=== PATIENT | male | born 1955 | race Caucasian/White ===

== ENCOUNTER 2017-02-03 14:20 | Emergency (ER) | payer BC ==
--- NOTE | 2017-02-03 15:08 | ER Document Report ---
ED Medical Screen (RME) - General Chief Complaint: Dizziness Stated Complaint: BLOOD PRESSURE PROBLEM Time Seen by Provider: 02/03/17 15:00 Notes: Patient is a 61-year-old male who presents with 2 days of feeling off balance and lightheadedness. He is also having nausea and vomited once. Pt seen at Urgent Care and sent to ER because the blood pressure was 179/92 and there is no history of hypertension. Denies focal weakness, numbness, abdominal pain or chest pain. PE: +Romberg's, 5/5 strength in all 4 extremities, sensation intact I have greeted and performed a rapid initial assessment of this patient. A comprehensive ED assessment and evaluation of the patient, analysis of test results and completion of the medical decision making process will be conducted by additional ED providers. TRAVEL OUTSIDE OF THE [place] IN LAST 30 DAYS: No - Related Data Allergies/Adverse Reactions: No Known Allergies Allergy (Verified 02/03/17 14:23) Past Medical History Renal/ Medical History: Denies: Hx Peritoneal Dialysis Physical Exam - Vital signs Vitals: Temp Pulse Resp BP Pulse Ox 97.9 F 82 20 166/93 H 95 02/03/17 14:23 02/03/17 14:23 02/03/17 14:23 02/03/17 14:23 02/03/17 14:23 Course - Vital Signs Vital signs: Temp Pulse Resp BP Pulse Ox 97.9 F 82 20 166/93 H 95 02/03/17 14:23 02/03/17 14:23 02/03/17 14:23 02/03/17 14:23 02/03/17 14:23
[2017-02-03] MEDS ORDERED: NORMAL SALINE 1000 ML 1,000 ML IV ONE (15:09)
[2017-02-03 15:47] LABS: ABSOLUTE BASOPHILS # (AUTO) 0.1 10^3/uL (0.0-0.2); ABSOLUTE EOSINOPHILS # (AUTO) 0.2 10^3/uL (0.0-0.6); ABSOLUTE LYMPHOCYTES (AUTO) 2.9 10^3/uL (0.5-4.7); ABSOLUTE MONOCYTES (AUTO) 0.5 10^3/uL (0.1-1.4); ABSOLUTE NEUT (AUTO) 5.7 10^3/uL (1.7-8.2); BASOPHILS % (AUTO) 1.1 % (0-2); EOSINOPHILS % (AUTO) 2.6 % (0-6); HEMATOCRIT 47.8 % (37.9-51.0); HEMOGLOBIN 15.9 g/dL (13.5-17.0); HGB HCT DIFFERENCE -0.1; LYMPHOCYTES % (AUTO) 30.8 % (13-45); MEAN CORPUSCULAR HEMOGLOBIN 27.3 pg (27.0-33.4); MEAN CORPUSCULAR HGB CONC 33.1 g/dL (32.0-36.0); MEAN CORPUSCULAR VOLUME 82 fl (80-97); MONOCYTES % (AUTO) 5.6 % (3-13); RED CELL DISTRIBUTION WIDTH 15.8 % (11.5-14.0); SEGMENTED NEUTROPHILS % (AUTO) 59.9 % (42-78); WHITE BLOOD COUNT 9.5 10^3/uL (4.0-10.5)
[2017-02-03 15:53] LABS: APPEARANCE,URINE CLEAR; BILIRUBIN,URINE NEGATIVE (NEGATIVE); GLUCOSE, URINE NEGATIVE (NEGATIVE); KETONES,URINE NEGATIVE (NEGATIVE); LEUKOCYTE ESTERASE,URINE NEGATIVE (NEGATIVE); NITRITE,URINE NEGATIVE (NEGATIVE); PROTEIN,URINE NEGATIVE (NEGATIVE); URINE SPECIFIC GRAVITY 1.005; UROBILINOGEN,URINE NEGATIVE mg/dL (<2.0)
--- NOTE | 2017-02-03 15:53 | RADIOLOGY REPORT (SQ) ---
EXAM DESCRIPTION: CHEST SINGLE VIEW COMPLETED DATE/TIME: 02/03/2017 3:39 pm REASON FOR STUDY: SOB COMPARISON: None. EXAM PARAMETERS: NUMBER OF VIEWS: One view. TECHNIQUE: Single frontal radiographic view of the chest acquired. RADIATION DOSE: NA LIMITATIONS: None. FINDINGS: LUNGS AND PLEURA: Minimal linear opacities left lung base. Otherwise clear. MEDIASTINUM AND HILAR STRUCTURES: No masses. Contour normal. HEART AND VASCULAR STRUCTURES: Heart normal in size. Normal vasculature. BONES: No acute findings. HARDWARE: None in the chest. OTHER: No other significant finding. IMPRESSION: MINIMAL AIRSPACE OPACITIES LEFT LUNG BASE MAY REPRESENT SUBSEGMENTAL ATELECTASIS, ASPIRA TION, OR DEVELOPING PNEUMONIA. TECHNICAL DOCUMENTATION: JOB ID: [id number]
[2017-02-03 16:18] LABS: ALANINE AMINOTRANSFERASE 26 U/L (21-72); ALBUMIN 3.9 g/dL (3.5-5.0); ALKALINE PHOSPHATASE 115 U/L (38-126); ANION GAP 10 (5-19); ASPARTATE AMINO TRANSFERASE 18 U/L (17-59); BILIRUBIN,DIRECT 0.5 mg/dL (0.0-0.4); BILIRUBIN,TOTAL 0.7 mg/dL (0.2-1.3); BLOOD UREA NITROGEN 12 mg/dL (7-20); CALCIUM 9.9 mg/dL (8.4-10.2); CARBON DIOXIDE 31 mmol/L (22-30); CHLORIDE 103 mmol/L (98-107); CREATINE KINASE 51 U/L (55-170); CREATININE RESULT 0.97 mg/dL (0.52-1.25); GLUCOSE 104 mg/dL (75-110); LIPASE 58.7 U/L (23-300); POTASSIUM 3.8 mmol/L (3.6-5.0)
[2017-02-03] MEDS ORDERED: MECLIZINE HCL 25 MG TABLET PO ONE ×2 (16:41→18:38)
--- NOTE | 2017-02-03 17:25 | ER Document Report ---
ED General - General Chief Complaint: Dizziness Stated Complaint: BLOOD PRESSURE PROBLEM Time Seen by Provider: 02/03/17 15:00 Mode of Arrival: Ambulatory Information source: Patient, Relative Notes: 61 yr old male presents with family with concerns that he was pale intermittently since yesterday with dizziness and his gait being off. Patient denies any chest pain shortness of breath headache TRAVEL OUTSIDE OF THE [place] IN LAST 30 DAYS: No - HPI Onset: Yesterday Onset/Duration: Sudden Quality of pain: No pain Severity: Mild Pain Level: Denies Associated symptoms: Weakness Exacerbated by: Denies Relieved by: Denies Similar symptoms previously: No Recently seen / treated by doctor: No - Related Data Allergies/Adverse Reactions: No Known Allergies Allergy (Verified 02/03/17 14:23) Past Medical History - Social History Smoking Status: Current Every Day Smoker Cigarette use (# per day): Yes Chew tobacco use (# tins/day): No Smoking Education Provided: No Frequency of alcohol use: None Drug Abuse: None Family History: Reviewed & Not Pertinent Renal/ Medical History: Denies: Hx Peritoneal Dialysis Review of Systems - Review of Systems Notes: REVIEW OF SYSTEMS: CONSTITUTIONAL : Denies fever, chills, or sweats. Denies recent illness. EENT: Denies eye, ear, throat, or mouth pain or symptoms. Denies nasal or sinus congestion or discharge. Denies throat, tongue, or mouth swelling or difficulty swallowing. CARDIOVASCULAR: Denies chest pain. Denies palpitations or racing or irregular heart beat. Denies ankle edema. RESPIRATORY: Denies cough, cold, or chest congestion. Denies shortness of breath, difficulty breathing, or wheezing. GASTROINTESTINAL: Denies abdominal pain or distention. Denies nausea, vomiting , or diarrhea. Denies blood in vomitus, stools, or per rectum. Denies black, tarry stools. Denies constipation. GENITOURINARY: Denies difficulty urinating, painful urination, burning, frequency, blood in urine, or discharge. MUSCULOSKELETAL: Denies back or neck pain or stiffness. Denies joint pain or swelling. SKIN: Denies rash, lesions or sores. HEMATOLOGIC : Denies easy bruising or bleeding. LYMPHATIC: Denies swollen, enlarged glands. NEUROLOGICAL: Admits to difficulty with gait PSYCHIATRIC: Denies anxiety or stress. Denies depression, suicidal ideation, or homicidal ideation. ALL OTHER SYSTEMS REVIEWED AND NEGATIVE. Dictation was performed using [employer] voice recognition software PHYSICAL EXAMINATION: GENERAL: Well-appearing, well-nourished and in no acute distress. HEAD: Atraumatic, normocephalic. EYES: Pupils equal round and reactive to light, extraocular movements intact, sclera anicteric, conjunctiva are normal. ENT: Nares patent, oropharynx clear without exudates. Moist mucous membranes. NECK: Normal range of motion, supple without lymphadenopathy LUNGS: Breath sounds clear to auscultation bilaterally and equal. No wheezes rales or rhonchi. HEART: Regular rate and rhythm without murmurs ABDOMEN: Soft, nontender, nondistended abdomen. No guarding, no rebound. No masses appreciated. Musculoskeletal: Normal range of motion, no pitting or edema. No cyanosis. NEUROLOGICAL: Cranial nerves grossly intact. Normal speech, normal gait. Normal sensory, motor exams PSYCH: Normal mood, normal affect. SKIN: Warm, Dry, normal turgor, no rashes or lesions noted. Physical Exam - Vital signs Vitals: Temp Pulse Resp BP Pulse Ox 97.9 F 82 20 166/93 H 95 02/03/17 14:23 02/03/17 14:23 02/03/17 14:23 02/03/17 14:23 02/03/17 14:23 Course - Re-evaluation Re-evalutation: 02/03/17 17:57 Patient denies any concerns states he feels perfectly fine family members are more concerned and he is, he states overall he has no other issues, lab work noted no significant abnormality CT head nose negative for any acute bleed had the patient ambulates in the ambulated with no difficulty given family's concerns I did have the patient to see here further see if symptoms return, but both he and family state that he looks much better now and is asymptomatic 02/04/17 18:46 Patient was watched further had absolutely no symptoms and will be discharged at this time I explained to him in a very strict return precautions and they understand and will return if there are any other concerns After performing a Medical Screening Examination, I estimate there is LOW risk for INTRACRANIAL HEMORRHAGE, ISCHEMIC CVA, MALIGNANT DYSRHYTHMIA, ACUTE CORONARY SYNDROME, MENINGITIS, PULMONARY EMBOLISM, or SEPSIS thus I consider the discharge disposition reasonable. I have reevaluated this patient multiple times and no significant life threatening changes are noted. The patient and I have discussed the diagnosis and risks, and we agree with discharging home with close follow-up with the understanding that symptoms and presentations can change. We also discussed returning to the Emergency Department immediately if new or worsening symptoms occur. We have discussed the symptoms which are most concerning (e.g., changing or worsening pain, weakness, vomiting, fever) that necessitate immediate return. - Vital Signs Vital signs: Temp Pulse Resp BP Pulse Ox 97.9 F 82 31 H 164/85 H 97 02/03/17 14:23 02/03/17 14:23 02/03/17 17:09 02/03/17 17:08 02/03/17 17:09 - Laboratory Result Diagrams: 02/03/17 15:25 02/03/17 15:25 Laboratory results interpreted by me: 02/03/17 02/03/17 15:25 15:25 RBC 5.80 H RDW 15.8 H Carbon Dioxide 31 H Direct Bilirubin 0.5 H Creatine Kinase 51 L - Diagnostic Test Radiology reviewed: Image reviewed, Reports reviewed - EKG Interpretation by Me EKG shows normal: Sinus rhythm, Sabin, Intervals, QRS Complexes Discharge - Discharge Clinical Impression: Vertigo, Dizziness Condition: Stable Disposition: HOME, SELF-CARE Instructions: Dizziness ([facility]), Vertigo ([facility]) Prescriptions: Meclizine HCl [Antivert 25 mg Tablet] 25 mg PO TID PRN #21 tablet PRN Reason: Referrals: CURRY WELLER MD [Primary Care Provider] - Follow up as needed BASIL OH MD [ACTIVE STAFF] - Follow up tomorrow
--- NOTE | 2017-02-03 17:25 | RADIOLOGY REPORT (SQ) ---
EXAM DESCRIPTION: CT HEAD WITHOUT COMPLETED DATE/TIME: 02/03/2017 5:02 pm REASON FOR STUDY: dizzy COMPARISON: None. TECHNIQUE: Axial images acquired through the brain without intravenous contrast. Images reviewed wi th bone, brain and subdural windows. Images stored on PACS. All CT scanners at this facility use dose modulation, iterative reconstruction, and/or weight based d osing when appropriate to reduce radiation dose to as low as reasonably achievable (ALARA). [facility]: Dose Right [facility]: CareDose [facility]: Dose Right [facility]: Teradose 4D [facility]: [employer] RADIATION DOSE: Up-to-date CT equipment and radiation dose reduction techniques were employed. CTDIv ol: 64.6 mGy. DLP: 1163 mGy-cm. mGy. LIMITATIONS: None. FINDINGS: VENTRICLES: Normal size and contour. CEREBRUM: No masses. No hemorrhage. No midline shift. No evidence for acute infarction. Normal gra y/white matter differentiation. No areas of low density in the white matter. CEREBELLUM: No masses. No hemorrhage. No alteration of density. No evidence for acute infarction. EXTRAAXIAL SPACES: No fluid collections. No masses. ORBITS AND GLOBE: No intra- or extraconal masses. Normal contour of globe without masses. CALVARIUM: No fracture. PARANASAL SINUSES: No fluid or mucosal thickening. SOFT TISSUES: No mass or hematoma. OTHER: No other significant finding. IMPRESSION: No acute intracranial findings. COMMENT: Quality ID # [id number]: Final reports with documentation of one or more dose reduction techniques (e.g., Automated exposure control, adjustment of the mA and/or kV according to patient size, use of iterative reconstruction technique) TECHNICAL DOCUMENTATION: JOB ID: [id number]- All Rights Reserved
[2017-02-03 18:22] VITALS: BP 164/85
--- NOTE | 2017-02-03 18:23 | EKG REPORT ---
SEVERITY:- NORMAL ECG - SINUS RHYTHM : Confirmed by: Santiago Avitia MD 03-Feb-2017 18:23:05
== END 2017-02-03 18:49 | disposition home or self-care (01) ==
LOC: ER 14:20
DX: R42 Dizziness and giddiness (principal); R53.1 Weakness; F17.210 Nicotine dependence, cigarettes, uncomplicated
CPT/HCPCS: 93005; 99284; 96360; 36415; 82550; 83690; 85025; 80053; 81001; 84484; 71010; 70450; 93010; L1830; J7030

== ENCOUNTER 2017-04-19 09:17 | Inpatient (IN) | payer BC ==
[2017-04-19 09:44] LABS: ABSOLUTE BASOPHILS # (AUTO) 0.1 10^3/uL (0.0-0.2); ABSOLUTE EOSINOPHILS # (AUTO) 0.2 10^3/uL (0.0-0.6); ABSOLUTE LYMPHOCYTES (AUTO) 2.7 10^3/uL (0.5-4.7); ABSOLUTE MONOCYTES (AUTO) 0.6 10^3/uL (0.1-1.4); ABSOLUTE NEUT (AUTO) 7.9 10^3/uL (1.7-8.2); BASOPHILS % (AUTO) 0.5 % (0-2); EOSINOPHILS % (AUTO) 1.8 % (0-6); HEMATOCRIT 52.3 % (37.9-51.0); HEMOGLOBIN 17.4 g/dL (13.5-17.0); HGB HCT DIFFERENCE -0.1; LYMPHOCYTES % (AUTO) 23.9 % (13-45); MEAN CORPUSCULAR HEMOGLOBIN 27.3 pg (27.0-33.4); MEAN CORPUSCULAR HGB CONC 33.2 g/dL (32.0-36.0); MEAN CORPUSCULAR VOLUME 82 fl (80-97); MONOCYTES % (AUTO) 5.4 % (3-13); RED BLOOD COUNT 6.35 10^6/uL (4.35-5.55); RED CELL DISTRIBUTION WIDTH 15.3 % (11.5-14.0); SEGMENTED NEUTROPHILS % (AUTO) 68.4 % (42-78); WHITE BLOOD COUNT 11.5 10^3/uL (4.0-10.5)
--- NOTE | 2017-04-19 09:51 | RADIOLOGY REPORT (SQ) ---
EXAM DESCRIPTION: CT HEAD WITHOUT COMPLETED DATE/TIME: 04/19/2017 9:36 am REASON FOR STUDY: FACILA DROOP COMPARISON: January 2017 TECHNIQUE: Axial images acquired through the brain without intravenous contrast. Images reviewed wi th bone, brain and subdural windows. Images stored on PACS. All CT scanners at this facility use dose modulation, iterative reconstruction, and/or weight based d osing when appropriate to reduce radiation dose to as low as reasonably achievable (ALARA). [facility]: Dose Right [facility]: CareDose [facility]: Dose Right [facility]: Teradose 4D [facility]: [employer] RADIATION DOSE: Up-to-date CT equipment and radiation dose reduction techniques were employed. CTDIv ol: 64.6 mGy. DLP: 1163 mGy-cm. mGy. LIMITATIONS: None. FINDINGS: VENTRICLES: Normal size and contour. CEREBRUM: No masses. No hemorrhage. No midline shift. No evidence for acute infarction. Normal gra y/white matter differentiation. No areas of low density in the white matter. CEREBELLUM: No masses. No hemorrhage. No alteration of density. No evidence for acute infarction. EXTRAAXIAL SPACES: No fluid collections. No masses. ORBITS AND GLOBE: No intra- or extraconal masses. Normal contour of globe without masses. CALVARIUM: No fracture. PARANASAL SINUSES: No fluid or mucosal thickening. SOFT TISSUES: No mass or hematoma. OTHER: No other significant finding. IMPRESSION: No significant intracranial abnormalities were identified. Findings as noted above EVIDENCE OF ACUTE STROKE: NO. COMMENT: Quality ID # [id number]: Final reports with documentation of one or more dose reduction techniques (e.g., Automated exposure control, adjustment of the mA and/or kV according to patient size, use of iterative reconstruction technique) TECHNICAL DOCUMENTATION: JOB ID: [id number] [employer]- All Rights Reserved
[2017-04-19 09:54] LABS: PARTIAL THROMBOPLASTIN TIME 28.7 SEC (23.5-35.8)
[2017-04-19] MEDS ORDERED: NORMAL SALINE 1000 ML 1,000 ML IV ONE (10:03)
[2017-04-19 10:04] LABS: ALANINE AMINOTRANSFERASE 36 U/L (21-72); ALBUMIN 4.3 g/dL (3.5-5.0); ALKALINE PHOSPHATASE 140 U/L (38-126); ANION GAP 13 (5-19); ASPARTATE AMINO TRANSFERASE 25 U/L (17-59); BILIRUBIN,DIRECT 0.4 mg/dL (0.0-0.4); BILIRUBIN,TOTAL 0.8 mg/dL (0.2-1.3); BLOOD UREA NITROGEN 9 mg/dL (7-20); CARBON DIOXIDE 30 mmol/L (22-30); CHLORIDE 104 mmol/L (98-107); CREATINE KINASE 66 U/L (55-170); CREATININE RESULT 0.96 mg/dL (0.52-1.25); GLUCOSE 101 mg/dL (75-110); POTASSIUM 3.9 mmol/L (3.6-5.0); SODIUM 146.7 mmol/L (137-145); TOTAL PROTEIN 7.7 g/dL (6.3-8.2)
--- NOTE | 2017-04-19 10:04 | RADIOLOGY REPORT (SQ) ---
EXAM DESCRIPTION: CHEST SINGLE VIEW COMPLETED DATE/TIME: 04/19/2017 9:41 am REASON FOR STUDY: FACILA DROOP COMPARISON: January 2017 EXAM PARAMETERS: NUMBER OF VIEWS: One view. TECHNIQUE: Single frontal radiographic view of the chest acquired. RADIATION DOSE: NA LIMITATIONS: None. FINDINGS: LUNGS AND PLEURA: No opacities, masses or pneumothorax. No pleural effusion. I cannot exc lude a component of obstructive lung disease. MEDIASTINUM AND HILAR STRUCTURES: No masses. Contour normal. HEART AND VASCULAR STRUCTURES: Heart normal in size. Normal vasculature. BONES: No acute findings. HARDWARE: None in the chest. OTHER: No other significant finding. IMPRESSION: NO ACUTE RADIOGRAPHIC FINDING IN THE CHEST. TECHNICAL DOCUMENTATION: JOB ID: [id number] [employer]- All Rights Reserved
--- NOTE | 2017-04-19 10:06 | ER Document Report ---
ED General - General Chief Complaint: S/S of Possible Stroke Stated Complaint: STROKE LIKE SYMPTOMS Time Seen by Provider: 04/19/17 09:27 TRAVEL OUTSIDE OF THE [place] IN LAST 30 DAYS: No - HPI Patient complains to provider of: Left-sided weakness facial drooping Notes: Patient coming in for left upper extremity left lower extremity weakness with new onset of left facial drooping. According to the patient had weakness and numbness of the left upper and lower extremity yesterday patient states he went to a workup this morning with improvement weakness in left leg however left arm continued states it felt like he was having trouble controlling it. According to the family patient at 850 started having left facial drooping. Patient denies any history trauma denies any recent surgery patient states he has a history of hyperlipidemia blood pressure issues. Patient states compliant with this medication regimen. Patient states he does smoke approximately pack to half pack a day. Patient is no obvious distress alert and oriented upon my evaluation. - Related Data Allergies/Adverse Reactions: No Known Allergies Allergy (Verified 02/03/17 14:23) Home Medications: Current Home Medications Albuterol Sulfate [Ventolin Hfa] 2 puff IN Q6HP PRN 04/19/17 [History] Aspirin [Adult Low Dose Aspirin EC] 81 mg PO DAILYP PRN 04/19/17 [History] Febuxostat [Uloric 40 mg Tablet] 40 mg PO DAILYP PRN 04/19/17 [History] Losartan Potassium [Cozaar 50 mg Tablet] 50 mg PO DAILY 04/19/17 [History] Meclizine HCl [Antivert 25 mg Tablet] 25 mg PO Q8HP PRN 04/19/17 [History] Omeprazole 40 mg PO DAILY 04/19/17 [History] Simvastatin [Zocor 40 mg Tablet] 40 mg PO DAILY 04/19/17 [History] Umeclidinium Brm/Vilanterol Tr [Anoro Ellipta 62.5-25 Mcg INH] 1 puff IN DAILYP PRN 04/19/17 [History] Past Medical History - Social History Smoking Status: Unknown if Ever Smoked Family History: Reviewed & Not Pertinent Renal/ Medical History: Denies: Hx Peritoneal Dialysis Review of Systems - Review of Systems Constitutional: No symptoms reported EENT: No symptoms reported Cardiovascular: No symptoms reported Respiratory: No symptoms reported Gastrointestinal: No symptoms reported Genitourinary: No symptoms reported Male Genitourinary: No symptoms reported Musculoskeletal: Other - Left-sided weakness Skin: No symptoms reported Hematologic/Lymphatic: No symptoms reported Neurological/Psychological: No symptoms reported Physical Exam - Vital signs Vitals: Resp 20 04/19/17 09:24 Interpretation: Normal - General General appearance: Appears well, Alert - HEENT Head: Normocephalic, Atraumatic Eyes: Normal Pupils: PERRL - Respiratory Respiratory status: No respiratory distress Chest status: Nontender Breath sounds: Normal Chest palpation: Normal - Cardiovascular Rhythm: Regular Heart sounds: Normal auscultation Murmur: No - Abdominal Inspection: Normal Distension: No distension Bowel sounds: Normal Tenderness: Nontender Organomegaly: No organomegaly - Back Back: Normal, Nontender - Extremities General upper extremity: Normal inspection, Nontender, Normal color, Normal ROM , Normal temperature General lower extremity: Normal inspection, Nontender, Normal color, Normal ROM , Normal temperature, Normal weight bearing. No: Cielo's sign - Neurological Neuro grossly intact: Yes Cognition: Normal Orientation: AAOx4 [place] Coma Scale Eye Opening: Spontaneous [place] Coma Scale Verbal: Oriented [place] Coma Scale Motor: Obeys Commands [place] Coma Scale Total: 15 Sensory: Normal Notes: Refer to NIH scale - Psychological Associated symptoms: Normal affect, Normal mood - Skin Skin Temperature: Warm Skin Moisture: Dry Skin Color: Normal Course - Re-evaluation Re-evalutation: 04/19/17 10:04 Patient presents with left arm weakness left leg weakness ongoing since yesterday with new onset of left facial drooping starting at 850 according to the family members. states patient woke up and was otherwise normal noticed at 8 50 the patient's face was drooping. NIH scale of the patient shows a score of 4. Head CT is otherwise negative. Patient's blood pressure is significantly elevated at this time. Discussed with family members and patient at bedside risk and benefits of receiving TPA benefit being symptoms resolve risk being bleeding in the head possible mortality. Patient states that this time he does not think he would like to have any thrombolytic medication due to the risk factors. Patient states he understands that his symptoms can continue and may not resolve on their own however these are deficits that he would be willing to live with. I am going to consult with [facility] neurology to make sure there is no other therapy that can be provided for the patient. Otherwise we will continue on with basic lab work at this time. Will repeat patient's blood pressure 04/19/17 10:07 04/19/17 10:25 Discussed with neurology at [facility] Dr Kelley. States patient is not a candidate for thrombolytic or interventional therapy. Patient is ruled out due to having symptoms yesterday with continued symptoms at this time even the patient is now having new symptoms at 850. Again discussed this with the patient patient agrees that he would not like or consent to thrombolytic therapy. - Vital Signs Vital signs: Temp Pulse Resp BP Pulse Ox 98.0 F 64 20 175/93 H 98 04/19/17 13:24 04/19/17 13:24 04/19/17 13:24 04/19/17 13:24 04/19/17 13:24 - Laboratory Result Diagrams: 04/19/17 09:29 04/19/17 09:29 Laboratory results interpreted by me: 04/19/17 04/19/17 09:29 09:29 WBC 11.5 H RBC 6.35 H Hgb 17.4 H Hct 52.3 H RDW 15.3 H Sodium 146.7 H Alkaline Phosphatase 140 H Critical Care Note - Critical Care Note Total time excluding time spent on procedures (mins): 40 Comments: Multiple evaluations for patient with underlying stroke. Discharge - Discharge Clinical Impression: Left-sided weakness, Facial droop CVA (cerebral vascular accident) Qualifiers: CVA mechanism: unspecified Qualified Code(s): I63.9 - Cerebral infarction, unspecified Condition: Good Disposition: ADMITTED INPATIENT Admitting Provider: Hospitalist - [facility] Unit Admitted: Telemetry ED NIH Stroke Scale - NIH Stroke Scale *: 1. NIH scale should be completed with appropriate accompanying assessment tools. *: 2. The NIH should reflect what the patient is capable of doing and should not be coached by the clinician. 1a. Level of Consciousness: 0=Alert;keenly responsive -: 1=Drowsy -: 2=Obtunded -: 3=Coma/unresponsive or reflex to noxious stimuli. 1a. Responses: 0 1b. Orientation Questions: a. What month is it? -: b. How old are you? -: 0=Answers both questions correctly. -: 1=Answers one question correctly or patient is intubated or has orotracheal trauma. -: 2=Answers neither question correctly. 1b. Responses: 0 1c. Response to commands: a. Open and close eyes? -: b. Cardiovascular Radiologic Technologist and release hand? -: Credit is given despite weakness. Demonstration of task is permitted. Substitute command if hands cannot be used. -: 0=Performs both tasks correctly -: 1=Performs one task correctly -: 2=Performs neither task correctly 1c. Responses: 0 2. Gaze: Establish eye contact and instruct patient to "Follow my finger" -: 0=Normal -: 1=Partial gaze palsy. Gaze is abnormal in one or both eyes, but where forced deviation or total gaze paresis is not present. -: 2=Forced deviation or total gaze paresis. 2. Responses: 0 3. Visual Parra: Sees fingers in all four quadrants. -: 0=No visual loss. -: 1=Partial hemianopsia. -: 2=Complete hemianopsia. -: 3=Bilateral hemianopsia (including Cortical blindness) 3. Responses: 0 4. Facial Movement: Instruct patient to: -: a. Show me your teeth -: b. Raise your eyebrows -: c. Close your eyes -: d. Smile -: 0=Normal symmetrical movement -: 1=Minor paralysis (flattened nasolabial fold, asymmetry on smiling). -: 2=Partial paralysis (total or near total paralysis of lower face). -: 3=Complete paralysis of upper and lower face 4. Responses: 2 5. Motor functions (left arm): Alternate sides and extend each arm with palms down (90 degrees if sitting or 45 degrees for supine). -: 0=No drift;limb holds for full 10 seconds. -: 1=Drift; limb holds but drifts down before full 10 seconds, but does not hit bed. -: 2=Some effort against gravity; limb cannot get to or maintain position. -: 3=No effort against gravity; limb falls. -: 4=No movement. -: UN=Amputation, joint fusion, explain in comments. 5. Responses (left arm): 1 5. Motor Functions (right arm): Alternate sides and extend each arm with palms down (90 degrees if sitting or 45 degrees for supine). -: 0=No drift;limb holds for full 10 seconds. -: 1=Drift; limb holds but drifts down before full 10 seconds, but does not hit bed. -: 2=Some effort against gravity; limb cannot get to or maintain position. -: 3=No effort against gravity; limb falls. -: 4=No movement. -: UN=Amputation, joint fusion, explain in comments. 5. Responses (right arm): 0 6. Motor Functions (left leg): With patient lying supine, alternate sides and extend each leg (30 degrees always while supine). -: 0=No drift, leg holds position for full 5 seconds -: 1=Drift; leg falls before full 5 seconds but does not hit bed. -: 2=Some effort against gravity, leg falls to bed but some effort against gravity. -: 3=No effort against gravity, leg falls to bed immediately. -: 4=No movement. -: UN=Amputation, joint fusion; explain in comments. 6. Responses (left leg): 0 6. Motor Functions (right leg): With patient lying supine, alternate sides and extend each leg (30 degrees always while supine). -: 0=No drift, leg holds position for full 5 seconds -: 1=Drift; leg falls before full 5 seconds but does not hit bed. -: 2=Some effort against gravity, leg falls to bed but some effort against gravity. -: 3=No effort against gravity, leg falls to bed immediately. -: 4=No movement. -: UN=Amputation, joint fusion; explain in comments. 6. Responses (right leg): 0 7. Limb Ataxia: With eyes open instruct patient to: -: a. "Touch your finger to your nose". -: b. "Touch your heel to your huynh" -: 0=Absent -: 1=Present in one limb. -: 2=Present in two limbs. -: UN=Amputation or joint fusion; explain in comments. 7. Responses: 1 8. Sensory: Test sensation using pinprick or noxious stimuli. Test as many body parts as possible. -: 0=Normal;no sensory loss -: 1=Mile to moderate sensory loss (patient feels pin prick but is less sharp on affected side). -: 2=Severe or total sensory loss. 8. Responses: 0 9. Best Language: Instruct patient to: -: a. "Describe what you see in this picture." -: b. "Name the items in this picture." -: c. "Read these sentences." -: 0=No aphasia, normal -: 1=Mild to moderate aphasia. -: 2=Severe aphasia -: 3=Mute, global aphasia, no usable speech or auditory comprehension. 9. Responses: 0 10. Articulation, Dysarthia: Instruct patient to: -: "Read these words" or "Repeat these words" -: 0=Normal -: 1=Mild to moderate; patient may slur some words but can be understood without difficulty. -: 2=Severe; patients speech so slurred as to be unintelligible in the absence of dysphasia. -: UN=Intubated or other physical barrier, explain in comments. 10. Responses: 0 11. Extinction or inattention: 0=No abnormality -: 1= Visual, tactile, auditory, spatial, or personal inattention or extinction to bilateral simulation in one or the sensory modalities. -: 2=Profound rayshawn-inattention or rayshawn-inattention to more than one modality; does not recognize own hand. 11. Responses: 0 Total Score: 4
[2017-04-19 10:18] LABS: CREATINE KINASE MB 1.88 ng/mL (<4.55)
[2017-04-19 10:25] LABS: TROPONIN I < 0.012 ng/mL
[2017-04-19] MEDS ORDERED: NORMAL SALINE 1000 ML 1,000 ML IV PRN (10:29)
[2017-04-19] MEDS ORDERED: LABETALOL HCL INJ 20 MG/4 ML DISP.SYRIN IV PRN (10:35)
[2017-04-19] MEDS ORDERED: TEMAZEPAM 15 MG CAPSULE PO PRN (10:35)
[2017-04-19] MEDS ORDERED: DOCUSATE SODIUM 100 MG CAPSULE PO PRN (10:35)
[2017-04-19] MEDS ORDERED: ACETAMINOPHEN 325 MG TABLET PO PRN (10:35)
[2017-04-19] MEDS ORDERED: ONDANSETRON HCL INJ/PF 4 MG/2 ML SDV IV PRN (10:35)
--- NOTE | 2017-04-19 11:30 | PDOC H&P ---
History of Present Illness Admission Date/PCP: 04/19/17 10:52 Patient complains of: Left facial droop, left upper extremity weakness History of Present Illness: HAROON GIRARD is a 61 year old right handed male with history of hypertension , gout, dyslipidemia, active tobacco abuse, who presented to the emergency room with left facial droop and left upper extremity weakness. Time of onset was 0 8 :50 AM on 04/18/2017. The patient states that he started having weakness of his left lower and upper extremities which some sort of improved. He went to bed and upon getting up this morning noticed left facial drooping as well as left upper extremity numbness. When seen in the emergency room the patient still had residual left upper extremity weakness with left facial droop. His NIH scale on presentation was 4. Patient denies any chest pain, shortness of breath, nausea, vomiting, diarrhea, abdominal pain, headache, seizures. In the ED, patient still has some left upper extremity numbness and weakness, left facial droop. Blood pressure was 191 on 101. Chest x-ray did not reveal any acute abnormalities. No significant intracranial abnormalities were identified on head CT scan. MRI/MRA of the brain was ordered in the emergency room and is pending. Per my review, EKG revealed normal sinus rhythm at 70 bpm, with mildly prolonged QTC of 484. Emergency room physician did discuss with the neurology at [facility], Dr Kelley, who noted that the patient was not a candidate for thrombolytic or interventional therapy due to time of onset of symptoms yesterday. Past Medical History Cardiac Medical History: Reports: Hyperlipidema, Hypertension Past Surgical History Past Surgical History: Reports: Other - Cervical fusion Social History Information Source: Patient, Relative, Emergency Med Personnel Lives with: Family, Spouse/Significant other Smoking Status: Current Every Day Smoker Cigarettes Packs Per Day: 1 Number of Years Smokin Frequency of Alcohol Use: Rare Hx Recreational Drug Use: No Hx Prescription Drug Abuse: No - Advance Directive Resuscitation Status: Full Code Surrogate healthcare decision maker:: Spouse Family History Family History: Reviewed & Not Pertinent, Other - Both parents Parental Family History Reviewed: Yes Children Family History Reviewed: Yes Sibling(s) Family History Reviewed.: Yes Medication/Allergy Allergies/Adverse Reactions: No Known Allergies Allergy (Verified 02/03/17 14:23) Physical Exam Vital Signs: Temp Pulse Resp BP Pulse Ox 75 21 H 172/106 H 97 04/19/17 09:50 04/19/17 10:06 04/19/17 10:06 04/19/17 10:06 General appearance: PRESENT: no acute distress, cooperative, well-developed Head exam: PRESENT: atraumatic, normocephalic Eye exam: PRESENT: conjunctiva pink, EOMI, PERRLA. ABSENT: conjunctival injection, conjunctiva pale, nystagmus, periorbital swelling, scleral icterus, other Mouth exam: PRESENT: moist, neck supple, tongue midline Teeth exam: PRESENT: poor dentation Neck exam: PRESENT: carotid bruit, full ROM Respiratory exam: PRESENT: clear to auscultation anne-marie, symmetrical, unlabored. ABSENT: accessory muscle use, chest wall tenderness, crackles, decreased breath sounds, prolonged expiratory phas, rales, retraction, rhonchi, stridor, tachypnea, wheezes, other Cardiovascular exam: PRESENT: RRR, +S1, +S2. ABSENT: bradycardia, clicks, diastolic murmur, gallop, irregular rhythm, rubs, systolic murmur, tachycardia, other Pulses: PRESENT: normal carotid pulses, normal dorsalis pedis pul, +2 pedal pulses bilateral GI/Abdominal exam: PRESENT: normal bowel sounds, soft. ABSENT: ascites, diminished bowel sounds, distended, firm, guarding, hernia, hyperactive bowel sounds, hypoactive bowel sounds, mass, Chase's sign, organolmegaly, rebound, rigid, tenderness, other Rectal exam: PRESENT: deferred Musculoskeletal exam: PRESENT: ambulatory, full ROM Neurological exam: PRESENT: alert, awake, oriented to person, oriented to place , oriented to time, oriented to situation, reflexes normal, CN II-XII grossly intact, motor sensory deficit - Left facial droop, left upper extremity weakness Psychiatric exam: PRESENT: anxious Skin exam: PRESENT: intact, normal color, warm Results Laboratory Results: I have reviewed the patient's chemistry and hematology results. Summarized in HPI Impressions: Chest X-Ray 04/19/17 09:23 IMPRESSION: NO ACUTE RADIOGRAPHIC FINDING IN THE CHEST. Head CT 04/19/17 09:23 IMPRESSION: No significant intracranial abnormalities were identified. Findings as noted above EVIDENCE OF ACUTE STROKE: NO. Status: Image reviewed by me Assessment & Plan - Diagnosis (1) CVA (cerebral vascular accident) Qualifiers: CVA mechanism: unspecified Qualified Code(s): I63.9 - Cerebral infarction, unspecified Is this a current diagnosis for this admission?: Yes Plan: Left facial drooping with left upper extremity weakness. Head CT scan with no acute abnormality. Not a candidate for thrombolytic/interventional therapy. Started on aspirin, atorvastatin. MRI/MRA of the brain, carotid duplex, echocardiogram pending. Admitted to the stroke unit. (2) Left-sided weakness Is this a current diagnosis for this admission?: Yes Plan: As above (3) Facial droop Is this a current diagnosis for this admission?: Yes Plan: As above (4) Hypertension Is this a current diagnosis for this admission?: Yes Plan: Blood pressure elevated at this period. Will allow permissive hypertension. Plan to start treating in 24-48 hours if persistently elevated (5) Dyslipidemia Is this a current diagnosis for this admission?: Yes Plan: Fasting lipid profile ordered. Patient started on atorvastatin 80 mg daily (6) Tobacco abuse Is this a current diagnosis for this admission?: Yes Plan: Smokes 1 pack of cigarettes daily. Smoking cessation counseling completed. Does not wish to quit smoking at this time. Nicotine replacement therapy initiated (7) History of gout Is this a current diagnosis for this admission?: Yes Plan: Chronic, stable. Using Uricase at home. We will hold (8) DVT prophylaxis Is this a current diagnosis for this admission?: Yes Plan: Subcutaneous Lovenox - Time Time Spent: 50 to 70 Minutes Smoking Cessation Education: over 10 minutes Medications reviewed and adjusted accordingly: Yes Anticipated discharge: Home - Inpatient Certification Based on my medical assessment, after consideration of the patient's comorbidities, presenting symptoms, or acuity I expect that the services needed warrant INPATIENT care.: Yes I certify that my determination is in accordance with my understanding of Medicare's requirements for reasonable and necessary INPATIENT services [42 CFR 412.3e].: Yes Medical Necessity: Need For Continuous Telemetry Monitoring, Need for Neurological Checks, Risk of Diagnosis Which Will Require Inpatient Eval/Care/ Monitoring - Plan Summary Plan Summary: Patient admitted to the [facility] and started on the stroke protocol. I have reviewed the diagnosis, prognosis, plan of care with the patient, spouse, and son. I have addressed all their concerns and answered their questions. They have expressed an explicit understanding of the plan of care
[2017-04-19] MEDS ORDERED: ENOXAPARIN SODIUM INJ 40 MG/0.4 ML DISP.SYRIN SUBCUT ONE (12:00)
--- NOTE | 2017-04-19 13:25 | RADIOLOGY REPORT (SQ) ---
EXAM DESCRIPTION: MRA HEAD WITHOUT COMPLETED DATE/TIME: 04/19/2017 12:31 pm REASON FOR STUDY: CVA left sided weakness COMPARISON: None. TECHNIQUE: Axial 3-D [id number] acquisition imaging performed through the brain in the area of t he [place] of [place]. Images reformatted using 3-D MIPS. LIMITATIONS: None. FINDINGS: SOURCE IMAGES: No unexpected findings on source images. No large masses. 3-D MIP: No aneurysm. No occlusions. No significant stenosis. OTHER: No other significant finding. IMPRESSION: NORMAL MRA OF THE [place] OF [place]. TECHNICAL DOCUMENTATION: JOB ID: [id number] [employer]- All Rights Reserved
--- NOTE | 2017-04-19 13:38 | RADIOLOGY REPORT (SQ) ---
EXAM DESCRIPTION: MRI HEAD WITHOUT COMPLETED DATE/TIME: 04/19/2017 12:31 pm REASON FOR STUDY: CVA left sided weakness COMPARISON: Brain CT scan dated 04/19/2017 TECHNIQUE: Multiplanar imaging includes non-contrasted T1, T2, FLAIR, and diffusion with ADC map seq uences. Images stored on PACS. LIMITATIONS: Signal void is identified anteriorly related to metallic foreign body in the superficia l soft tissues on the right. FINDINGS: ANATOMY: No anomalies. Normal vascular flow voids. Pituitary fossa normal. CSF SPACES: Normal in size and contour. No hemorrhage. CEREBRUM: Sulci and gyri normal in size and contour. There are some minimal small vessel ischemic ch anges on the FLAIR sequence. No evidence of hemorrhage, mass, or extraaxial fluid collection. POSTERIOR FOSSA: No signal alteration. No hemorrhage. No edema, masses or mass effect. Internal bekah tory canals, cerebello-pontine angles, mastoids normal. DIFFUSION IMAGING: There is a focal area of abnormal signal intensity at the level of the basal gangl ia on the right consistent with an area of recent infarction. ORBITS: No masses. Globes normal. PARANASAL SINUSES: No fluid levels. Mucosa normal. OTHER: No other significant finding. IMPRESSION: Focal area of abnormal signal intensity at the level of the basal ganglia on the right c onsistent with an area of recent infarction. Mild small vessel ischemic changes. Other findings as noted above EVIDENCE OF ACUTE STROKE: NO. TECHNICAL DOCUMENTATION: JOB ID: [id number] [employer]- All Rights Reserved
[2017-04-19] MEDS ORDERED: INFLUENZA ADLT QUAD (36MOS+) 2017-18 VAC 0.5 ML SYR IM PRN (15:07)
--- NOTE | 2017-04-19 15:45 | EKG REPORT ---
SEVERITY:- BORDERLINE ECG - SINUS RHYTHM BORDERLINE PROLONGED QT INTERVAL : Confirmed by: Vivian Zhang 19-Apr-2017 15:44:22
[2017-04-19] MEDS: FAMOTIDINE 20 MG TABLET PO SCH (21:29)
[2017-04-19] MEDS: ATORVASTATIN CALCIUM 80 MG TABLET PO SCH (21:29)
[2017-04-20 05:37] LABS: ABSOLUTE BASOPHILS # (AUTO) 0.1 10^3/uL (0.0-0.2); ABSOLUTE EOSINOPHILS # (AUTO) 0.4 10^3/uL (0.0-0.6); ABSOLUTE LYMPHOCYTES (AUTO) 3.4 10^3/uL (0.5-4.7); ABSOLUTE MONOCYTES (AUTO) 0.8 10^3/uL (0.1-1.4); ABSOLUTE NEUT (AUTO) 6.2 10^3/uL (1.7-8.2); BASOPHILS % (AUTO) 0.5 % (0-2); EOSINOPHILS % (AUTO) 3.8 % (0-6); HEMATOCRIT 46.1 % (37.9-51.0); HGB HCT DIFFERENCE -0.2; LYMPHOCYTES % (AUTO) 31.3 % (13-45); MEAN CORPUSCULAR HEMOGLOBIN 27.1 pg (27.0-33.4); MEAN CORPUSCULAR HGB CONC 33.2 g/dL (32.0-36.0); MEAN CORPUSCULAR VOLUME 82 fl (80-97); MONOCYTES % (AUTO) 7.4 % (3-13); RED BLOOD COUNT 5.66 10^6/uL (4.35-5.55); RED CELL DISTRIBUTION WIDTH 14.9 % (11.5-14.0)
[2017-04-20 05:50] LABS: HEMOGLOBIN 15.3 g/dL (13.5-17.0)
[2017-04-20 06:05] LABS: ALANINE AMINOTRANSFERASE 35 U/L (21-72); ALBUMIN 3.7 g/dL (3.5-5.0); ALKALINE PHOSPHATASE 118 U/L (38-126); ANION GAP 12 (5-19); ASPARTATE AMINO TRANSFERASE 22 U/L (17-59); BILIRUBIN,DIRECT 0.4 mg/dL (0.0-0.4); BILIRUBIN,TOTAL 0.6 mg/dL (0.2-1.3); BLOOD UREA NITROGEN 11 mg/dL (7-20); CALCIUM 9.6 mg/dL (8.4-10.2); CARBON DIOXIDE 28 mmol/L (22-30); CHLORIDE 106 mmol/L (98-107); CHOLESTEROL 157.94 mg/dL (0-200); CREATININE RESULT 0.91 mg/dL (0.52-1.25); Direct HDL 54 mg/dL (>40); GLUCOSE 89 mg/dL (75-110); POTASSIUM 4.1 mmol/L (3.6-5.0); SODIUM 145.9 mmol/L (137-145); TOTAL PROTEIN 6.4 g/dL (6.3-8.2); TRIGLYCERIDES 125 mg/dL (<150)
[2017-04-20 06:15] LABS: DIRECT LDL 95 mg/dL (<100)
--- NOTE | 2017-04-20 08:42 | PDOC PROGRESS REPORT ---
Subjective Progress Note for:: 04/20/17 Subjective:: Day 1 of hospitalization. 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 on 04/18/2017. His NIH scale on presentation was 4. Head CT scan was negative for a bleed. The patient was not eligible for thrombolytic/ interventional therapy due to being outside of the therapeutic window. He was admitted for further evaluation and management. MRI of the brain showed focal area of abnormal signal intensity in the right basal ganglia consistent with recent infarction. MRA of the brain revealed no acute abnormalities Overnight events noted: Patient reportedly had sinus bradycardia down to the high 40s while he was sleeping, with oxygen saturation in the high 80s. Currently patient is sitting up in hospital bed, he still complains of left facial drooping and left upper extremity weakness. He denies any other focal neurologic deficit. He denies chest pain, shortness of breath, nausea, vomiting , diarrhea, abdominal pain, fever or chills. Son and spouse are present in the room Physical Exam Vital Signs: Temp Pulse Resp BP Pulse Ox 97.9 F 62 18 172/82 H 97 04/20/17 07:35 04/20/17 08:00 04/20/17 08:00 04/20/17 08:00 04/20/17 08:00 Pulse Oximeter Continuous Start: 04/19/17 10: 31 Freq: RTQ4 Status: Active Document 04/20/17 04:00 [facility] (Rec: 04/20/17 04:33 [facility] [email or web address]) Pulse Oximetry Assessment Oxygen Saturation (92-100) 94 Equipment Usage Equipment in Use Continuous SpO2 Machine # 8 Intake & Output 04/19/17 04/20/17 04/21/17 06:59 06:59 06:59 Intake Total 725 Balance 725 Weight 65 kg General appearance: PRESENT: no acute distress, cooperative, well-developed Head exam: PRESENT: atraumatic, normocephalic Eye exam: PRESENT: conjunctiva pink, EOMI, PERRLA Respiratory exam: PRESENT: decreased breath sounds, symmetrical, unlabored Cardiovascular exam: PRESENT: RRR, +S1, +S2. ABSENT: bradycardia, clicks, diastolic murmur, gallop, irregular rhythm, rubs, systolic murmur, tachycardia, other GI/Abdominal exam: PRESENT: normal bowel sounds, soft. ABSENT: ascites, diminished bowel sounds, distended, firm, guarding, hernia, hyperactive bowel sounds, hypoactive bowel sounds, mass, Chase's sign, organolmegaly, rebound, rigid, tenderness, other Neurological exam: PRESENT: alert, awake, oriented to person, oriented to place , oriented to time, oriented to situation, reflexes normal, CN II-XII grossly intact, other - Left facial droop, left upper extremity drift, left upper extremity weakness Psychiatric exam: PRESENT: depressed Results Laboratory Results: 04/20/17 04:14 04/20/17 04:14 04/20/17 04/20/17 04:14 04:14 WBC 11.0 H RBC 5.66 H Hgb 15.3 D Hct 46.1 MCV 82 MCH 27.1 MCHC 33.2 RDW 14.9 H Plt Count 157 Seg Neutrophils % 57.0 Lymphocytes % 31.3 Monocytes % 7.4 Eosinophils % 3.8 Basophils % 0.5 Absolute Neutrophils 6.2 Absolute Lymphocytes 3.4 Absolute Monocytes 0.8 Absolute Eosinophils 0.4 Absolute Basophils 0.1 Sodium 145.9 H Potassium 4.1 Chloride 106 Carbon Dioxide 28 Anion Gap 12 BUN 11 Creatinine 0.91 Est GFR ( Amer) > 60 Est GFR (Non-Af Amer) > 60 Glucose 89 Calcium 9.6 Total Bilirubin 0.6 AST 22 ALT 35 Alkaline Phosphatase 118 Total Protein 6.4 Albumin 3.7 Triglycerides 125 Cholesterol 157.94 LDL Cholesterol Direct 95 VLDL Cholesterol 25.0 HDL Cholesterol 54 04/19/17 04/19/17 04/20/17 15:30 21:30 04:14 Troponin I < 0.012 < 0.012 < 0.012 Impressions: Chest X-Ray 04/19/17 09:23 IMPRESSION: NO ACUTE RADIOGRAPHIC FINDING IN THE CHEST. Head CT 04/19/17 09:23 IMPRESSION: No significant intracranial abnormalities were identified. Findings as noted above EVIDENCE OF ACUTE STROKE: NO. Brain MRI with MRA 04/19/17 11:02 IMPRESSION: NORMAL MRA OF THE [place] OF [place]. Head MRI 04/19/17 11:02 IMPRESSION: Focal area of abnormal signal intensity at the level of the basal ganglia on the right consistent with an area of recent infarction. Mild small vessel ischemic changes. Other findings as noted above EVIDENCE OF ACUTE STROKE: NO. Assessment & Plan - Diagnosis (1) CVA (cerebral vascular accident) Qualifiers: CVA mechanism: unspecified Qualified Code(s): I63.9 - Cerebral infarction, unspecified Is this a current diagnosis for this admission?: Yes Plan: Left facial drooping with left upper extremity weakness. Head CT scan with no acute abnormality. MRI with evidence of recent infarction of the right basal ganglia . Not a candidate for thrombolytic/interventional therapy. Continue aspirin, atorvastatin. Carotid duplex, echocardiogram pending. PT/OT/ST consulted. (2) Left-sided weakness Is this a current diagnosis for this admission?: Yes Plan: As above (3) Facial droop Is this a current diagnosis for this admission?: Yes Plan: As above (4) Hypertension Qualifiers: Hypertension type: unspecified Qualified Code(s): I10 - Essential (primary ) hypertension Is this a current diagnosis for this admission?: Yes Plan: Blood pressure elevated at this period. Will allow permissive hypertension. Plan to start treating in 24 hours if persistently elevated (5) Dyslipidemia Is this a current diagnosis for this admission?: Yes Plan: Fasting lipid profile ordered. Patient started on atorvastatin 80 mg daily (6) Tobacco abuse Is this a current diagnosis for this admission?: Yes Plan: Smokes 1 pack of cigarettes daily. Smoking cessation counseling completed. Does not wish to quit smoking at this time. Nicotine replacement therapy initiated (7) History of gout Is this a current diagnosis for this admission?: Yes Plan: Chronic, stable. Using Uricase at home. We will hold (8) DVT prophylaxis Is this a current diagnosis for this admission?: Yes Plan: Subcutaneous Lovenox and SCDs - Time Time Spent with patient: 35 or more minutes Smoking Cessation Education: 3 to 10 minutes Medications reviewed and adjusted accordingly: Yes Anticipated discharge: Home - Inpatient Certification Based on my medical assessment, after consideration of the patient's comorbidities, presenting symptoms, or acuity I expect that the services needed warrant INPATIENT care.: Yes I certify that my determination is in accordance with my understanding of Medicare's requirements for reasonable and necessary INPATIENT services [42 CFR 412.3e].: Yes Medical Necessity: Need For Continuous Telemetry Monitoring, Risk of Diagnosis Which Will Require Inpatient Eval/Care/Monitoring - Plan Summary Plan Summary: Maintain hospitalized in the stroke unit, complete current workup, continue PT/ OT/ST. Plan reviewed with spouse and children
--- NOTE | 2017-04-20 09:15 | EKG REPORT ---
SEVERITY:- NORMAL ECG - SINUS RHYTHM : Confirmed by: Vivian Zhang 20-Apr-2017 09:15:08
[2017-04-20] MEDS: ASPIRIN 81 MG TABLET, ENT COATED PO SCH (09:59)
[2017-04-20] MEDS: FAMOTIDINE 20 MG TABLET PO SCH ×2 (09:59→21:27)
[2017-04-20] MEDS: ENOXAPARIN SODIUM INJ 40 MG/0.4 ML DISP.SYRIN SUBCUT SCH (10:00)
[2017-04-20] MEDS: NICOTINE 21 MG/24 HR PATCH.TD24 TD SCH (10:07)
[2017-04-20] MEDS: ATORVASTATIN CALCIUM 80 MG TABLET PO SCH (21:27)
[2017-04-20] MEDS: HYDROCODONE/ACETAMINOPHEN 5-325 MG TABLET PO PRN (21:28)
[2017-04-21 07:05] LABS: ABSOLUTE BASOPHILS # (AUTO) 0.1 10^3/uL (0.0-0.2); ABSOLUTE EOSINOPHILS # (AUTO) 0.4 10^3/uL (0.0-0.6); ABSOLUTE LYMPHOCYTES (AUTO) 3.8 10^3/uL (0.5-4.7); ABSOLUTE MONOCYTES (AUTO) 0.7 10^3/uL (0.1-1.4); ABSOLUTE NEUT (AUTO) 6.2 10^3/uL (1.7-8.2); BASOPHILS % (AUTO) 0.7 % (0-2); EOSINOPHILS % (AUTO) 3.7 % (0-6); HEMATOCRIT 46.1 % (37.9-51.0); HEMOGLOBIN 15.2 g/dL (13.5-17.0); HGB HCT DIFFERENCE -0.5; MEAN CORPUSCULAR HGB CONC 32.9 g/dL (32.0-36.0); MEAN CORPUSCULAR VOLUME 82 fl (80-97); MONOCYTES % (AUTO) 6.3 % (3-13); RED BLOOD COUNT 5.62 10^6/uL (4.35-5.55); RED CELL DISTRIBUTION WIDTH 14.9 % (11.5-14.0); SEGMENTED NEUTROPHILS % (AUTO) 55.3 % (42-78); WHITE BLOOD COUNT 11.3 10^3/uL (4.0-10.5)
[2017-04-21] MEDS ORDERED: LOSARTAN POTASSIUM 50 MG TABLET PO SCH (10:00)
[2017-04-21] MEDS: FAMOTIDINE 20 MG TABLET PO SCH (10:07)
[2017-04-21] MEDS: ENOXAPARIN SODIUM INJ 40 MG/0.4 ML DISP.SYRIN SUBCUT SCH (10:07)
[2017-04-21] MEDS: ASPIRIN 81 MG TABLET, ENT COATED PO SCH (10:08)
[2017-04-21] MEDS: NICOTINE 21 MG/24 HR PATCH.TD24 TD SCH (10:10)
[2017-04-21] MEDS: HYDROCODONE/ACETAMINOPHEN 5-325 MG TABLET PO PRN (12:48)
[2017-04-21 13:07] VITALS: BP 145/74
[2017-04-21] MEDS ORDERED: TEMAZEPAM 15 MG CAPSULE PO PRN (14:00)
[2017-04-21] MEDS ORDERED: ONDANSETRON HCL INJ/PF 4 MG/2 ML SDV IV PRN (14:00)
--- NOTE | 2017-04-21 14:44 | PDOC DISCHARGE SUMMARY ---
General - Admit/Disc Date/PCP Admission Date/Primary Care Provider: 04/19/17 10:52 Discharge Date: 04/21/17 - Discharge Diagnosis (1) CVA (cerebral vascular accident) Is this a current diagnosis for this admission?: Yes Summary: Right basal ganglia infarction (2) Left-sided weakness Is this a current diagnosis for this admission?: Yes (3) Facial droop Is this a current diagnosis for this admission?: Yes (4) Hypertension Is this a current diagnosis for this admission?: Yes (5) Dyslipidemia Is this a current diagnosis for this admission?: Yes (6) Tobacco abuse Is this a current diagnosis for this admission?: Yes (7) History of gout Is this a current diagnosis for this admission?: Yes - Additional Information Resuscitation Status: Full Code Discharge Diet: Cardiac Discharge Activity: Activity As Tolerated Home Medications: Albuterol Sulfate [Ventolin Hfa] 2 puff IN Q6HP PRN 04/19/17 Aspirin [Adult Low Dose Aspirin EC] 81 mg PO DAILYP PRN 04/19/17 Febuxostat [Uloric 40 mg Tablet] 40 mg PO DAILYP PRN 04/19/17 Meclizine HCl [Antivert 25 mg Tablet] 25 mg PO Q8HP PRN 04/19/17 Omeprazole 40 mg PO DAILY 04/19/17 Simvastatin [Zocor 40 mg Tablet] 40 mg PO DAILY 04/19/17 Umeclidinium Brm/Vilanterol Tr [Anoro Ellipta 62.5-25 Mcg INH] 1 puff IN DAILYP PRN 04/19/17 Losartan Potassium [Cozaar 50 mg Tablet] 100 mg PO DAILY #30 tablet 04/21/17 History of Present Illness Patient complains of: Left facial droop and left upper extremity weakness of 24 hours duration. History of Present Illness: HAROON GIRARD is a 61 year old right handed male with history of hypertension , gout, dyslipidemia, active tobacco abuse, who presented to the emergency room with left facial droop and left upper extremity weakness. Time of onset was 0 8 :50 AM on 04/18/2017. The patient states that he started having weakness of his left lower and upper extremities which some sort of improved. He went to bed and upon getting up this morning noticed left facial drooping as well as left upper extremity numbness. When seen in the emergency room the patient still had residual left upper extremity weakness with left facial droop. His NIH scale on presentation was 4. Patient denies any chest pain, shortness of breath, nausea, vomiting, diarrhea, abdominal pain, headache, seizures. In the ED, patient still has some left upper extremity numbness and weakness, left facial droop. Blood pressure was 191 on 101. Chest x-ray did not reveal any acute abnormalities. No significant intracranial abnormalities were identified on head CT scan. MRI/MRA of the brain was ordered in the emergency room and is pending. Per my review, EKG revealed normal sinus rhythm at 70 bpm, with mildly prolonged QTC of 484. Emergency room physician did discuss with the neurology at [facility], Dr Kelley, who noted that the patient was not a candidate for thrombolytic or interventional therapy due to time of onset of symptoms yesterday. Hospital Course Hospital Course: On presentation the patient's NIH scale was 4. This CT was negative for bleed. MRI of the brain showed a focal area of abnormal signal intensity in the right basal ganglia consistent with recent stroke. MRI of the brain did not show any acute abnormalities. Patient was seen by PT, and OT. He was started on aspirin and a statin. His home blood pressure medications was held for permissive hypertension. At this point the patient still has some residual left facial droop, and left upper extremity weakness. Is requesting to be discharged home with outpatient rehab as recommended by PT. We will plan on discharging him today [echocardiogram and carotid ultrasound results are still pending.] Physical Exam Vital Signs: Temp Pulse Resp BP Pulse Ox 97.4 F 56 L 18 163/77 H 95 04/21/17 07:40 04/21/17 10:20 04/21/17 10:20 04/21/17 10:20 04/21/17 10:20 Pulse Oximeter Continuous Start: 04/19/17 10: 31 Freq: RTQ4 Status: Active Document 04/21/17 04:00 [facility] (Rec: 04/21/17 05:56 [facility] [email or web address]) Pulse Oximetry Assessment Oxygen Saturation (92-100) 98 Oxygen Flow Rate (L/min) 3 Oxygen Delivery Method Nasal Cannula Equipment Usage Equipment in Use Continuous SpO2 Machine # 8 Intake & Output 04/20/17 04/21/17 04/22/17 06:59 06:59 06:59 Intake Total 725 2554 Balance 725 2554 Weight 65 kg 65.2 kg General appearance: PRESENT: no acute distress, cooperative, well-developed Eye exam: PRESENT: conjunctiva pink, EOMI, PERRLA Respiratory exam: PRESENT: clear to auscultation anne-marie, symmetrical, unlabored. ABSENT: accessory muscle use, chest wall tenderness, crackles, decreased breath sounds, prolonged expiratory phas, rales, retraction, rhonchi, stridor, tachypnea, wheezes, other Cardiovascular exam: PRESENT: RRR, +S1, +S2. ABSENT: bradycardia, clicks, diastolic murmur, gallop, irregular rhythm, rubs, systolic murmur, tachycardia, other GI/Abdominal exam: PRESENT: normal bowel sounds, soft. ABSENT: ascites, diminished bowel sounds, distended, firm, guarding, hernia, hyperactive bowel sounds, hypoactive bowel sounds, mass, Chase's sign, organolmegaly, rebound, rigid, tenderness, other Extremities exam: PRESENT: full ROM. ABSENT: calf tenderness, clubbing, joint swelling, pedal edema, tenderness, +1 edema, +2 edema, other Musculoskeletal exam: PRESENT: ambulatory, full ROM Neurological exam: PRESENT: alert, awake, oriented to person, oriented to place , oriented to time, oriented to situation, reflexes normal, CN II-XII grossly intact, other - Persistent left facial droop, left upper extremity arm drift, left upper extremity weakness. On ambulation, patient appears to drift to the left side Results Laboratory Results: 04/21/17 05:56 04/20/17 04:14 04/21/17 05:56 WBC 11.3 H RBC 5.62 H Hgb 15.2 Hct 46.1 MCV 82 MCH 27.0 MCHC 32.9 RDW 14.9 H Plt Count 139 L Seg Neutrophils % 55.3 Lymphocytes % 34.0 Monocytes % 6.3 Eosinophils % 3.7 Basophils % 0.7 Absolute Neutrophils 6.2 Absolute Lymphocytes 3.8 Absolute Monocytes 0.7 Absolute Eosinophils 0.4 Absolute Basophils 0.1 04/19/17 04/19/17 04/20/17 15:30 21:30 04:14 Troponin I < 0.012 < 0.012 < 0.012 Impressions: Chest X-Ray 04/19/17 09:23 IMPRESSION: NO ACUTE RADIOGRAPHIC FINDING IN THE CHEST. Head CT 04/19/17 09:23 IMPRESSION: No significant intracranial abnormalities were identified. Findings as noted above EVIDENCE OF ACUTE STROKE: NO. Brain MRI with MRA 04/19/17 11:02 IMPRESSION: NORMAL MRA OF THE [place] OF [place]. Head MRI 04/19/17 11:02 IMPRESSION: Focal area of abnormal signal intensity at the level of the basal ganglia on the right consistent with an area of recent infarction. Mild small vessel ischemic changes. Other findings as noted above EVIDENCE OF ACUTE STROKE: NO. Status: Image reviewed by me Qualifiers PATEINT BEING DISCHARGED WITH ANY OF THE FOLLOWING DIAGNOSIS?: Stroke Stroke Pt being discharged on Anti-thrombolytic therapy?: Yes Stroke Pt being discharged on Anti-coagulation therapy?: No Reason(s) for not prescribing Anti-coagulation therapy:: Not indicated Stroke Pt being discharged on Statins?: Yes Plan Time Spent: Greater than 30 Minutes - I have reviewed the discharge diagnosis and discharge plan with the patient, patient's spouse, and son was present in the room. I have addressed all their concerns and answered their questions. They understand that the patient would benefit from outpatient rehab. They have expressed a clear understanding of this discharge plan
--- NOTE | 2017-04-21 19:34 | XCELERA REPORT ---
[address] [address] Transthoracic Echocardiogram Report Name: HAROON GIRARD Age: 61 yrs Gender: Male : 1955 Patient Status: Inpatient Patient Location: [address] [place] [address] Study Date: 04/21/2017 01:15 PM Height: 63 in Weight: 143 lb BSA: 1.7 m2 Procedure: A complete two-dimensional transthoracic echocardiogram was performed (2D, M-mode, spectral and color flow Doppler). The study was technically difficult with many images being suboptimal in quality. Reason For Study: cva Ordering Physician: VALENTIN DALY Performed By: Tosha Pastrana Interpretation Summary Left ventricular systolic function is borderline reduced. The Ejection Fraction estimate is 50-55% There is borderline concentric left ventricular hypertrophy. The left ventricle is grossly normal size. Wall motion cannot be accurately commented on, but no definite regional wall motion abnormalities noted. The right ventricular systolic function is normal. The right atrium is normal in size The left atrial size is normal. There is a trace amount of mitral regurgitation There is no mitral valve stenosis. There is no aortic valve stenosis No aortic regurgitation is present. No tricuspid regurgitation. There is no tricuspid stenosis. The aortic root is not well visualized but is probably normal size. The inferior vena cava appeared normal and decreased > 50% with respiration (RAP 5-10 mmHg) There is no pericardial effusion. MMode/2D Measurements & Calculations RVDd: 3.2 cm LVIDd: 4.7 cm FS: 24.1 % Ao root diam: 2.7 cm IVSd: 0.78 cm LVIDs: 3.6 cm EDV(Teich): 104.6 ml LVPWd: 0.85 cm ESV(Teich): 54.5 ml Ao root area: 5.6 cm2 EF(Teich): 47.9 % LA dimension: 2.7 cm Doppler Measurements & Calculations MV E max miya: MV P1/2t max miya: Ao V2 max: LV V1 max P.8 cm/sec 50.3 cm/sec 203.6 cm/sec 6.8 mmHg MV A max miya: MV P1/2t: 110.4 msec Ao max PG: LV V1 max: 72.1 cm/sec 16.6 mmHg 130.3 cm/sec MV E/A: 0.71 MVA(P1/2t): 2.0 cm2 MV dec slope: 133.6 cm/sec2 PA V2 max: 98.2 cm/sec PA max P.9 mmHg Left Ventricle The left ventricle is grossly normal size. There is borderline concentric left ventricular hypertrophy. Left ventricular systolic function is borderline reduced. The Ejection Fraction estimate is 50-55%. Doppler measurements suggest pseudonormalized left ventricular relaxation, which is associated with grade II/IV or mild to moderate diastolic dysfunction. Wall motion cannot be accurately commented on, but no definite regional wall motion abnormalities noted. Right Ventricle The right ventricle is grossly normal size. There is normal right ventricular wall thickness. The right ventricular systolic function is normal. Atria The right atrium is normal in size. The left atrial size is normal. Interarterial septum not well visualized and not well dopplered. Cannot comment on ASD/PFO presence. Mitral Valve The mitral valve is grossly normal. There is no mitral valve stenosis. There is a trace amount of mitral regurgitation. Aortic Valve The aortic valve is not well visualized secondary to technical limitations. There is no aortic valve stenosis. No aortic regurgitation is present. Tricuspid Valve The tricuspid valve is not well visualized, but is grossly normal. There is no tricuspid stenosis. No tricuspid regurgitation. Pulmonic Valve The pulmonic valve is not well visualized. Great Vessels The aortic root is not well visualized but is probably normal size. The inferior vena cava appeared normal and decreased > 50% with respiration (RAP 5-10 mmHg). Effusions There is no pericardial effusion. Incidental Findings No definite cardiac source of CVA/TIA noted on this particular trans- thoracic study. Consider OLESYA if clinically indicated. May consider mobile cardiac telemetry monitoring (MCT) for ruling out transient AFIB. : VALENTIN DALY > Vivian Zhang
[2017-04-22] MEDS ORDERED: ASPIRIN 81 MG TABLET, ENT COATED PO SCH (10:00)
--- NOTE | 2017-04-28 13:09 | CAROTID DOPPLER PRO FEE REPORT ---
CAROTID DUPLEX DOPPLER REPORT [id number] ROOM#: [id number] DATE OF STUDY: 04/21/2017 DATE OF : 1955 REFERRING MD: VALENTIN DALY M.D. ORDER NO: [id number] TECHNOLOGIST: Deena Pastrana INDICATION: CVA STUDY: The color carotid duplex scan was performed with real time images and real time Doppler velocity measurements. Real time images indicated no plaque formation either right or left carotid system. Doppler velocity measurements were as follows: MEASUREMENT: RIGHT LEFT CCA PSV (prox/mid) 74 cm/sec 103 cm/sec CCA PSV (distal) 85 cm/sec 77 cm/sec CCA EDV (prox/mid) 17 cm/sec 22 cm/sec CCA EDV (distal) 24 cm/sec 20 cm/sec ICA PSV (proximal) 76 cm/sec 106 cm/sec ICA PSV (distal) 66 cm/sec 84 cm/sec ICA EDV (proximal) 16 cm/sec 40 cm/sec ICA EDV (distal) 18 cm/sec 22 cm/sec ECA 115 cm/sec 120 cm/sec ICA/CCA RATIO: 0.9 on the right and 1.4 on the left. Vertebrals are patent. Flow is cephalad. FINAL IMPRESSION: NO PLAQUE FORMATION, LESS THAN 50% STENOTIC FLOW, ESSENTIALLY A NORMAL STUDY. INTERPRETING PHYSICIAN: BASIL OH M.D. /: NOE TT: 1305 ID: [id number] /: [id number] TD: [id number] JOB: [id number] cc:Gary SHEFFIELD M.D. ANTON CLEMMONS, M.D. >
== END 2017-04-21 16:50 | disposition home or self-care (01) | DRG 65 ==
LOC: ER 09:17 → EH 10:52 → 3W 13:00
PROVIDERS: ADMIT Emergency Medicine; ATTEND Emergency Medicine
PROC: 3E0234Z Introduction of Serum, Toxoid and Vaccine into Muscle, Percutaneous Approach (ICD-10-PCS; principal; 2017-04-21)
DX: I63.9 Cerebral infarction, unspecified (principal); G81.94 Hemiplegia, unspecified affecting left nondominant side; R29.810 Facial weakness; I10 Essential (primary) hypertension; E78.5 Hyperlipidemia, unspecified; M10.9 Gout, unspecified; R29.704 NIHSS score 4; F17.210 Nicotine dependence, cigarettes, uncomplicated; R00.1 Bradycardia, unspecified; Z79.82 Long term (current) use of aspirin; Z79.899 Other long term (current) drug therapy; Z23 Encounter for immunization
CPT/HCPCS: 36415; 70450; 70544; 70551; 71010; 80053; 80061; 82550; 82553; 83036; 84484; 85025; 85610; 85730; 90686; 93005; 93010; 93306; 93880; 94762; 99291; J1650; J3490; J7030

== ENCOUNTER → 2018-10-27 | Outpatient (CLI) | payer BC ==
--- NOTE | 2018-10-27 10:50 | RADIOLOGY REPORT (SQ) ---
EXAM DESCRIPTION: CT LUNG CANCER SCREENING COMPLETED DATE/TIME: 10/27/2018 9:40 am REASON FOR STUDY: TOBACCO ABUSE (Z87.891) Z87.891 PERSONAL HISTORY OF NICOTINE DEPENDENCE Has the patient had a Chest CT scan within the past year? No Was the patient offered tobacco cessation counseling? Yes Was the patient engaged in shared decision making for this test? Yes Does the patient have signs or symptoms of Lung Cancer? No Is the patient a smoker? No How many pack years? 65 How many years since quitting smoking? Not applicable Patients age: 63 COMPARISON: None. TECHNIQUE: Low Dose CT scan performed of the chest without intravenous contrast for purposes of scre ening for lung cancer. Images reviewed with lung, soft tissue and bone windows. Reconstructed coron al and sagittal MPR images reviewed. All images stored on PACS. All CT scanners at this facility use dose modulation, iterative reconstruction, and/or weight based d osing when appropriate to reduce radiation dose to as low as reasonably achievable (ALARA). [facility]: Dose Right [facility]: CareDose [facility]: Dose Right [facility]: Teradose 4D [facility]: Smart Angiologix RADIATION DOSE: CT Rad equipment meets quality standard of care and radiation dose reduction techniq ues were employed. CTDIvol: 2.0 mGy. DLP: 75 mGy-cm. mGy. . LIMITATIONS: None FINDINGS: LUNGS AND PLEURA: No masses or nodules. No pleural effusions or calcifications. No pne umothorax. No scarring or interstitial changes. There is obstructive lung disease most pronounced at the apices bilaterally. HILAR AND MEDIASTINAL STRUCTURES: No identified masses. No abnormal nodes. HEART AND VASCULAR STRUCTURES: No aortic aneurysm. No pericardial effusion. No cardiac devices. M ild aortic valve calcification. CORONARY ARTERY CALCIFICATIONS: Mild to moderate calcifications. UPPER ABDOMEN, THYROID, BONES, OTHER SOFT TISSUES: No significant findings. IMPRESSION: NO SIGNIFICANT FINDING IN THE LUNGS ON NON-CONTRASTED CHEST CT. NO OTHER CLINICALLY SIGNIFICANT/POTENTIALLY CLINICALLY SIGNIFICANT FINDINGS LUNGRADS: LUNGRADS: 1 NEGATIVE. NO NODULES, OR DEFINITELY BENIGN NODULES MODIFIER: NONE RECOMMENDATION: Continue annual screening with LDCT in 12 months. COMMENT: CRITERIA: No lung nodules. Nodules with specific calcifications: Complete, central, popcorn, concentric rings and fat containin g nodules. TECHNICAL DOCUMENTATION: JOB ID: [id number] Quality ID # [id number]: Final reports with documentation of one or more dose reduction techniques (e.g., Au tomated exposure control, adjustment of the mA and/or kV according to patient size, use of iterative reconstruction technique) 2010 [facility] Radiology Reading location - IP/workstation name: [facility]
== END ==
LOC: RAD 09:16
PROVIDERS: ATTEND Internal Medicine Pulmonary Disease
DX: Z12.2 Encounter for screening for malignant neoplasm of respiratory organs (principal); Z87.891 Personal history of nicotine dependence; I70.0 Atherosclerosis of aorta
CPT/HCPCS: G0297

== ENCOUNTER → 2020-01-24 | Outpatient (CLI) | payer MEDICARE, BC ==
--- NOTE | 2020-01-24 09:56 | RADIOLOGY REPORT (SQ) ---
EXAM DESCRIPTION: CT LUNG CANCER SCREENING IMAGES COMPLETED DATE/TIME: 01/24/2020 8:32 am REASON FOR STUDY: (Z87.891)PERSONAL HISTORY OF NICOTINE DEPENDENCE Z87.891 PERSONAL HISTORY OF JAVIER HESHAM DEPENDENCE Has the patient had a Chest CT scan within the past year? N Was the patient offered tobacco cessation counseling? Y Was the patient engaged in shared decision making for this test? Y Does the patient have signs or symptoms of Lung Cancer? N Is the patient a smoker? N How many pack years? 40 How many years since quitting smoking? 1 Patients age: 63 COMPARISON: 10/27/2018 TECHNIQUE: Low Dose CT scan performed of the chest without intravenous contrast for purposes of scre ening for lung cancer. Images reviewed with lung, soft tissue and bone windows. Reconstructed coron al and sagittal MPR images reviewed. All images stored on PACS. All CT scanners at this facility use dose modulation, iterative reconstruction, and/or weight based d osing when appropriate to reduce radiation dose to as low as reasonably achievable (ALARA). [facility]: Dose Right [facility]: CareDose [facility]: Dose Right [facility]: Teradose 4D [facility]: Pixowl RADIATION DOSE: CT Rad equipment meets quality standard of care and radiation dose reduction techniq ues were employed. CTDIvol: 2.0 mGy. DLP: 77 mGy-cm. mGy. . LIMITATIONS: No technical limitations. FINDINGS: LUNGS AND PLEURA: No masses or nodules. No pleural effusions or calcifications. No pne umothorax. Mild emphysema upper lobes. HILAR AND MEDIASTINAL STRUCTURES: No identified masses. No abnormal nodes. HEART AND VASCULAR STRUCTURES: No aortic aneurysm. No pericardial effusion. No cardiac devices. CORONARY ARTERY CALCIFICATIONS: Marked calcifications. UPPER ABDOMEN: No significant findings. THYROID AND OTHER SOFT TISSUES: No masses. No adenopathy. BONY STRUCTURES: No significant finding. OTHER: No other significant findings. IMPRESSION: NO EVIDENCE OF LUNG CANCER. OTHER FINDINGS ABOVE. LUNGRADS: LUNGRADS: 1 NEGATIVE. NO NODULES, OR DEFINITELY BENIGN NODULES MODIFIER: NONE RECOMMENDATION: Continue annual screening with LDCT in 12 months. COMMENT: CRITERIA: No lung nodules. Nodules with specific calcifications: Complete, central, popcorn, concentric rings and fat containin g nodules. TECHNICAL DOCUMENTATION: JOB ID: [id number] Quality ID # [id number]: Final reports with documentation of one or more dose reduction techniques (e.g., Au tomated exposure control, adjustment of the mA and/or kV according to patient size, use of iterative reconstruction technique) 2010 [facility] Radiology Reading location - IP/workstation name: [email or web address]
== END ==
LOC: RAD 08:17
PROVIDERS: ATTEND Internal Medicine Pulmonary Disease
DX: Z87.891 Personal history of nicotine dependence (principal)
CPT/HCPCS: G0297